=== PATIENT | female | born 1990 | race American Indian/Alaskan Native ===

== ENCOUNTER 2018-02-08 08:44 | Outpatient (CLI) | payer MEDICAID ==
[2018-02-08] MEDS ORDERED: LACTATED RINGERS 500 ML IV ONE (08:53)
[2018-02-08 09:00] VITALS: BP 107/59
[2018-02-08 09:32] LABS: Bacteria,Urine 1+ /HPF (Negative); Bilirubin,Urine NEG (Negative); Blood,Urine NEG (Negative); Color,Urine Yellow (Yellow); Mucus,Urine FEW /HPF; Protein,Urine <15 mg/dL mg/dL (Negative); Sperm,Urine FEW /HPF (NP); Urobilinogen,Urine < 2.0 mg/dL (<2.0)
== END 2018-02-08 10:27 | disposition home or self-care (01) ==
LOC: TRG 08:44
PROVIDERS: ATTEND Obstetrics & Gynecology
DX: O47.03 False labor before 37 completed weeks of gestation, third trimester (principal); Z3A.33 33 weeks gestation of pregnancy
CPT/HCPCS: 59025; 81001; 96360; J7120

== ENCOUNTER 2018-03-04 10:26 | Outpatient (CLI) | payer MEDICAID ==
[2018-03-04] MEDS ORDERED: LACTATED RINGERS 1,000 ML IV ONE (12:23)
[2018-03-04 12:35] VITALS: BP 104/62
== END 2018-03-04 12:48 | disposition home or self-care (01) ==
LOC: TRG 10:26
PROVIDERS: ATTEND Obstetrics & Gynecology
DX: O47.03 False labor before 37 completed weeks of gestation, third trimester (principal); Z3A.36 36 weeks gestation of pregnancy
CPT/HCPCS: 59025; 96360; J7120